=== PATIENT | female | born 1945 | race Caucasian/White ===

== ENCOUNTER 2018-09-05 07:19 | Day surgery (SDC) | payer OTHER ==
[~2018-09-05 07:19] MED LIST: CALCIUM500 M1 PO; MULTIVITAMINS1 EAC9 PO; OSTERA TABLET1 EACH PO
[2018-09-05] MEDS ORDERED: TYLENOL ARTHRI650 MG PO (09:14)
== END 2018-09-05 14:15 | disposition home or self-care (01) ==
LOC: CIR.AMB 07:19
DX: K62.4 Stenosis of anus and rectum (principal); K62.5 Hemorrhage of anus and rectum; K59.09 Other constipation

== ENCOUNTER 2019-12-07 11:03 | Day surgery (SDC) | payer OTHER ==
[~2019-12-07 11:03] MED LIST changes: +TYLENOL ARTHRI650 MG PO
== END 2019-12-07 14:50 | disposition home or self-care (01) ==
LOC: AMB-ENDOS 11:03
DX: K62.4 Stenosis of anus and rectum (principal); K55.1 Chronic vascular disorders of intestine

== ENCOUNTER 2022-04-26 10:57 | Emergency (ER) | payer OTHER ==
[~2022-04-26] VITALS: Ht 152.4 cm; Wt 47.2 kg
== END 2022-04-26 19:05 | disposition home or self-care (01) ==
LOC: ER 10:57
DX: R10.9 Unspecified abdominal pain (principal); Z88.0 Allergy status to penicillin; Z88.2 Allergy status to sulfonamides; Z88.6 Allergy status to analgesic agent; Z85.9 Personal history of malignant neoplasm, unspecified

== ENCOUNTER 2022-05-16 11:00 | Inpatient (IN) | payer OTHER ==
[~2022-05-16] VITALS: Ht 149.9 cm; Wt 46.7 kg
[2022-05-16] MEDS ORDERED: PANADOL EXTRA500 MG PO (14:43)
[2022-05-18] MEDS ORDERED: FAMOTIDINE20 MG (15:14)
[2022-05-18] MEDS ORDERED: DOCUSATE SODIU100 MG (15:14)
== END 2022-05-22 13:59 | disposition home or self-care (01) | DRG 330 ==
LOC: O/R 05-18 07:49 → SURH 05-18 11:00
PROVIDERS: ADMIT Surgery; ATTEND Surgery
PROC: 0D1N4Z4 Bypass Sigmoid Colon to Cutaneous, Percutaneous Endoscopic Approach (ICD-10-PCS; principal; 2022-05-18 13:00)
DX: K62.4 Stenosis of anus and rectum (principal); K55.1 Chronic vascular disorders of intestine; K62.7 Radiation proctitis; Z20.822 Contact with and (suspected) exposure to COVID-19

== ENCOUNTER 2023-06-12 15:27 | Inpatient (IN) | payer OTHER ==
[~2023-06-12] VITALS: Ht 149.9 cm; Wt 47.6 kg
[~2023-06-12 15:27] MED LIST changes: +DOCUSATE SODIU100 MG; +FAMOTIDINE20 MG; +PANADOL EXTRA500 MG PO
[2023-06-13] MEDS ORDERED: CIPRO250 MG/5 M PO (12:12)
[2023-06-13] MEDS ORDERED: BETHANECHOL CHLO5 MG PO (12:13)
[2023-06-19] MEDS ORDERED: FERROUS SULFAT325 MG (08:43)
[2023-06-19] MEDS ORDERED: FOLIC ACID1 MG (08:43)
[2023-06-21] MEDS ORDERED: ACETAMINOPHEN500 M2 PO (14:05)
[2023-06-21] MEDS ORDERED: NEURONTIN300 MG PO (14:05)
== END 2023-06-21 19:09 | disposition home or self-care (01) | DRG 330 ==
LOC: ADM 06-13 09:45 → EDSTATUS 06-13 09:45 → O/R 06-18 05:50 → SURH 06-18 09:45
PROVIDERS: ADMIT Surgery; ATTEND Surgery
PROC: 07BB4ZZ Excision of Mesenteric Lymphatic, Percutaneous Endoscopic Approach (ICD-10-PCS; 2023-06-18)
PROC: 0DBU4ZZ Excision of Omentum, Percutaneous Endoscopic Approach (ICD-10-PCS; 2023-06-18)
PROC: 0DTF4ZZ Resection of Right Large Intestine, Percutaneous Endoscopic Approach (ICD-10-PCS; principal; 2023-06-18 13:30)
DX: C18.2 Malignant neoplasm of ascending colon (principal); K55.1 Chronic vascular disorders of intestine; K62.5 Hemorrhage of anus and rectum; K62.89 Other specified diseases of anus and rectum

== ENCOUNTER 2023-07-07 12:43 | Emergency (ER) | payer OTHER ==
[~2023-07-07] VITALS: Ht 167.6 cm; Wt 49.9 kg
[~2023-07-07 12:43] MED LIST changes: +ACETAMINOPHEN500 M2 PO; +BETHANECHOL CHLO5 MG PO; +CIPRO250 MG/5 M PO; +FERROUS SULFAT325 MG; +FOLIC ACID1 MG; +NEURONTIN300 MG PO
[2023-07-07] MEDS ORDERED: PANTOPRAZOLE SO40 MG PO (12:54)
[2023-07-07] MEDS ORDERED: GABAPENTIN600 MG PO (12:54)
== END 2023-07-07 18:28 | disposition home or self-care (01) ==
LOC: ER 12:43
PROVIDERS: Emergency Medicine
DX: K29.60 Other gastritis without bleeding (principal); Z93.3 Colostomy status; C18.2 Malignant neoplasm of ascending colon; R07.89 Other chest pain; Z88.6 Allergy status to analgesic agent; Z88.0 Allergy status to penicillin; Z88.2 Allergy status to sulfonamides
CPT/HCPCS: 36415; 71045; 93005; 93041; 96365; 99284; J3490

== ENCOUNTER 2024-06-10 14:50 | Emergency (ER) | payer OTHER ==
[~2024-06-10] VITALS: Ht 152.4 cm; Wt 45.4 kg
[~2024-06-10 14:50] MED LIST changes: +GABAPENTIN600 MG PO; +PANTOPRAZOLE SO40 MG PO
[2024-06-10] MEDS ORDERED: MEDI-MECLIZINE25 MG (15:19)
[2024-06-10] MEDS ORDERED: LEVSIN0.125 MG (15:19)
[2024-06-10] MEDS ORDERED: ELIQUIS5 MG (15:19)
[2024-06-10] MEDS ORDERED: RINGERS SOLUTION,LACTATED 1,000 ML IV STA (19:51)
[2024-06-10] MEDS ORDERED: METOCLOPRAMIDE HCL 5 MG/ML VIAL IM STA (19:52)
[2024-06-10] MEDS ORDERED: BARIUM SULFATE 450 ML ORAL.SUSP PO ONE (20:07)
[2024-06-10 20:41] LABS: HEMATOCRIT 33.3 % (36.0-45.00); HEMOGLOBIN 11.1 g/dL (12.0-15.00); MEAN CELL VOLUME 80.9 fL (80.00-100.00); MEAN CORPUSCULAR HEMOGLOBIN 26.9 pg (27.00-32.0); MEAN CORPUSCULAR HGB CONC 33.2 g/dl (32.0-36.0); PLATELET COUNT 243 K/uL (150-450); RED BLOOD COUNT 4.12 M/uL (4.00-6.00); RED CELL DISTRIBUTION WIDTH 18.2 % (11.5-14.5)
[2024-06-10 21:02] LABS: PH,URINE 6.5 (5.0-8.0); URINE APPEARANCE Turbid; URINE BILIRRUBIN Negative (NEGATIVE); URINE BLOOD Moderate; URINE COLOR Yellow; URINE GLUCOSE Negative (NEGATIVE); URINE LEUKOCYTE Large; URINE NITRATE Negative; URINE PROTEIN 30 (NEGATIVE); URINE UROBILINOGEN 0.2 E.U./dl
[2024-06-10 21:06] LABS: URINE RBC 231.6 uL (0.0-20.8); URINE WBC 5481.6 uL (0.0-23.2)
[2024-06-10 21:26] LABS: URINE EPITHELIAL CELLS 1.2 uL (0.0-38.8)
[2024-06-10 21:27] LABS: URINE BACTERIA > 9821.5 uL (0.0-1933)
[2024-06-10 21:46] LABS: ALBUMIN 2.5 gm/dL (3.4-5.0); BILIRUBIN TOTAL 0.51 mg/dL (0.3-1.2); CALCIUM 8.8 mg/dL (8.5-10.1); CREATININE SERUM 0.64 mg/dL (0.55-1.02); GFR 89.98; GLOBULINA 4.1 G/DL (2.4-3.5); POTASSIUM 4.05 mEq/L (3.5-5.1); TOTAL PROTEIN 6.6 gm/dL (6.4-8.2)
[2024-06-10 21:49] LABS: INR 1.08; PARTIAL THROMBOPLASTIN TIME 26.2 SECONDS (22.0-34.0); PROTHROMBIN TIME 11.3 SECONDS (9.0-11.5)
[2024-06-11] MEDS ORDERED: CIPROFLOXACIN IN 5 % DEXTROSE 400 MG/200 ML PIGGYBAG IV STA (02:31)
[2024-06-11] MEDS ORDERED: CIPROFLOXACIN IN 5 % DEXTROSE 400 MG/200 ML PIGGYBAG IV ONE (02:50)
[2024-06-11] MEDS ORDERED: CIPRO500 MG PO (03:15)
== END 2024-06-11 04:17 ==
LOC: ER 14:51
DX: Z93.3 Colostomy status (principal); N39.0 Urinary tract infection, site not specified; R10.9 Unspecified abdominal pain; Z88.0 Allergy status to penicillin; Z88.2 Allergy status to sulfonamides; Z88.6 Allergy status to analgesic agent
CPT/HCPCS: 36415; 51702; 74177; 96365; 96372; 99284; J0744; J2765; Q9965

== ENCOUNTER 2025-06-01 09:00 | Inpatient (IN) | payer OTHER ==
[~2025-06-01] VITALS: Ht 162.6 cm; Wt 46.3 kg
[~2025-06-01 09:00] MED LIST changes: +CIPRO500 MG PO; +ELIQUIS5 MG; +LEVSIN0.125 MG; +MEDI-MECLIZINE25 MG
[2025-06-01] MEDS ORDERED: FUROSEMIDE20 MG (09:34)
--- NOTE | 2025-06-01 09:39 | NUR ---
PTE ALERTA Y ORIENTADA X3 REFIERE DOLOR ABDOMINAL Y UN EPISODIO DE VOMITO. PTE REFIERE SER PTE DE DR. JOANA BARRIENTOS. SE LEDA S/V Y SE UBICA.
[2025-06-01] MEDS ORDERED: METRONIDAZOLE/SODIUM CHLORIDE 500 MG/100 ML PIGGYBACK IV ONE (10:00)
[2025-06-01] MEDS ORDERED: CIPROFLOXACIN IN 5 % DEXTROSE 400 MG/200 ML PIGGYBAG IV ONE (10:00)
[2025-06-01] MEDS ORDERED: 0.9 % SODIUM CHLORIDE 1,000 ML IV SCH (10:00)
--- NOTE | 2025-06-01 11:05 | NUR ---
PTE EVALUADO POR DR. CAR, PRESENTANDO MOLESTIA ABDOMINAL, SE REALIZA ISAAC DE MUESTRAS DE [place] CARLOS BAJO MEDIDAS ASEPTICAS Y SE ADMINISTRAN MEDICAMENTOS POR ORDEN MEDICA Y SE OFRECE ORIENTACION SOBRE PROCEDIMIENTOS REALIZADOS Y PROCESO DE RE-EVALUACION MEDICA. CLIENTE ALERTA Y ORIENTADO AL MOMENTO DE LA INTERVENCION.
[2025-06-01 11:09] LABS: BASO % 0.2 % (0.1-1.2); EOS # 0.00 (0.04-0.54); EOS % 0.0 % (0.7-7.0); LYMPH # 1.05 (1.18-3.74); LYMPH % 13.1 % (19.3-53.1); MEAN PLATELET VOLUME 11.90 fl (9.4-12.4); MONO # 0.45 (0.24-0.82); MONO % 5.6 % (4.7-12.5); NEUT # 6.48 (1.56-6.13); NEUT % 80.9 % (34.0-71.1); RED CELL DISTRIBUTION WIDTH 15.5 % (11.6-14.4)
[2025-06-01 11:29] LABS: BUN CREA RATIO 22.0 (7.0-25.0); CREATININE SERUM 0.67 mg/dL (0.55-1.02); GFR 85.12; GLUCOSE FASTING 113.0 mg/dL (65-100); OSMOLALITY SERUM 288.0 MOSM/KG (275-295)
[2025-06-01 13:39] LABS: URINE APPEARANCE Clear; URINE BILIRRUBIN Negative (NEGATIVE); URINE BLOOD Large; URINE COLOR Yellow; URINE GLUCOSE Negative (NEGATIVE); URINE KETONE 15 (NEGATIVE); URINE LEUKOCYTE Trace; URINE NITRATE Negative; URINE PROTEIN Negative (NEGATIVE); URINE UROBILINOGEN 0.2 E.U./dl
[2025-06-01 13:43] LABS: URINE BACTERIA 8.3 uL (0.0-1933); URINE EPITHELIAL CELLS 7.8 uL (0.0-38.8); URINE RBC 240.9 uL (0.0-20.8); URINE WBC 71.5 uL (0.0-23.2)
[2025-06-01 13:46] LABS: URINE CAST 0.14 uL (0.0-1.40)
[2025-06-01] MEDS ORDERED: FAMOTIDINE/PF 20 MG in 0.9 % SODIUM CHLORIDE 8 ML IV PUSH SCH (19:59)
[2025-06-01] MEDS ORDERED: ACETAMINOPHEN 500 MG GEL..CAP PO PRN (20:00)
[2025-06-01] MEDS ORDERED: DEXTROSE 5 % AND 0.9 % NACL 1,000 ML IV SCH (20:00)
[2025-06-01] MEDS ORDERED: ONDANSETRON HCL 4 MG in 0.9 % SODIUM CHLORIDE 50 ML IV PRN (20:00)
[2025-06-01] MEDS ORDERED: POTASSIUM CHLORIDE 20MEQ/100ML H2O PB IV ONE (20:15)
[2025-06-01] MEDS ORDERED: CIPROFLOXACIN IN 5 % DEXTROSE 200 ML IV SCH (21:00)
[2025-06-01 22:34] LABS: INR 1.1
[2025-06-01 23:38] VITALS: BP 137/76; O2SAT 100
[2025-06-02 08:24] VITALS: BP 121/71; O2SAT 100
[2025-06-02] MEDS ORDERED: POTASSIUM CHLORIDE 20MEQ/100ML H2O PB IV ONE (13:15)
[2025-06-02 16:07] VITALS: BP 123/69; O2SAT 100
[2025-06-02 18:36] VITALS: BP 120/73; O2SAT 96
[2025-06-03 03:01] VITALS: BP 110/66; O2SAT 96
[2025-06-03 08:49] VITALS: BP 124/64
[2025-06-03 13:15] LABS: ALT/SGPT 19.0 U/L (12-78); AST/SGOT 21.0 U/L (15-37); BILIRUBIN TOTAL 0.51 mg/dL (0.3-1.2); BUN CREA RATIO 9.0 (7.0-25.0); CREATININE SERUM 0.67 mg/dL (0.55-1.02); GFR 85.12; GLOBULINA 2.9 G/DL (2.4-3.5); GLUCOSE FASTING 115.0 mg/dL (65-100); OSMOLALITY SERUM 295.0 MOSM/KG (275-295)
[2025-06-03] MEDS ORDERED: POTASSIUM CHLORIDE 10 MEQ CAPSULE PO NR (15:15)
[2025-06-03 16:52] VITALS: BP 124/64; O2SAT 98
[2025-06-04 01:40] VITALS: BP 131/67; O2SAT 97
[2025-06-04 06:30] LABS: BASO % 0.7 % (0.1-1.2); EOS # 0.17 (0.04-0.54); EOS % 4.2 % (0.7-7.0); LYMPH # 0.81 (1.18-3.74); LYMPH % 19.9 % (19.3-53.1); MEAN PLATELET VOLUME 12.40 fl (9.4-12.4); MONO # 0.54 (0.24-0.82); NEUT # 2.51 (1.56-6.13); NEUT % 61.7 % (34.0-71.1); RED CELL DISTRIBUTION WIDTH 15.5 % (11.6-14.4)
[2025-06-04 06:40] LABS: MONO % 13.3 % (4.7-12.5)
[2025-06-04 09:20] VITALS: BP 117/73
[2025-06-04 16:00] VITALS: BP 139/69
[2025-06-05 01:06] VITALS: BP 132/60; O2SAT 98
[2025-06-05 10:10] VITALS: BP 133/63; O2SAT 96
[2025-06-05 16:54] LABS: BASO % 0.4 % (0.1-1.2); EOS # 0.07 (0.04-0.54); EOS % 1.5 % (0.7-7.0); LYMPH # 0.85 (1.18-3.74); LYMPH % 18.2 % (19.3-53.1); MEAN PLATELET VOLUME 12.30 fl (9.4-12.4); MONO # 0.52 (0.24-0.82); MONO % 11.1 % (4.7-12.5); NEUT # 3.21 (1.56-6.13); NEUT % 68.8 % (34.0-71.1); RED CELL DISTRIBUTION WIDTH 15.4 % (11.6-14.4)
[2025-06-05 17:37] LABS: ALT/SGPT 22.0 U/L (12-78); AST/SGOT 19.0 U/L (15-37); BILIRUBIN TOTAL 0.47 mg/dL (0.3-1.2); BUN CREA RATIO 11.0 (7.0-25.0); CREATININE SERUM 0.56 mg/dL (0.55-1.02); GFR 104.7; GLOBULINA 2.2 G/DL (2.4-3.5); GLUCOSE FASTING 118.0 mg/dL (65-100); OSMOLALITY SERUM 291.0 MOSM/KG (275-295)
[2025-06-05 18:30] VITALS: BP 136/67; O2SAT 98
[2025-06-05] MEDS ORDERED: POTASSIUM CHLORIDE IN WATER 40 MEQ/100 ML PIGGYBAG IV SCH (21:45)
[2025-06-05] MEDS ORDERED: POTASSIUM CHLORIDE IN WATER 40 MEQ/100 ML PIGGYBAG IV ONE (22:01)
[2025-06-06 01:56] VITALS: BP 126/73; O2SAT 99
[2025-06-06 10:32] VITALS: BP 114/59; O2SAT 98
[2025-06-06] MEDS ORDERED: POTASSIUM CHLORIDE IN WATER 40 MEQ/100 ML PIGGYBAG IV NR (11:05)
[2025-06-06 11:09] LABS: BUN CREA RATIO 9.0 (7.0-25.0); CREATININE SERUM 0.67 mg/dL (0.55-1.02); GFR 85.12; GLUCOSE FASTING 148.0 mg/dL (65-100); OSMOLALITY SERUM 291.0 MOSM/KG (275-295)
[2025-06-06] MEDS ORDERED: LACTOBACILLUS ACIDOPHILUS 1 CAP CAP PO SCH (17:00)
[2025-06-06 18:03] VITALS: BP 112/65; O2SAT 98
[2025-06-06] MEDS ORDERED: POTASSIUM CHLORIDE IN WATER 40 MEQ/100 ML PIGGYBAG IV ONE (21:40)
[2025-06-07 01:41] VITALS: BP 127/72; O2SAT 98
[2025-06-07 10:26] VITALS: BP 100/62; O2SAT 99
[2025-06-07 19:08] VITALS: BP 105/64
[2025-06-08 03:27] VITALS: BP 109/62; O2SAT 97
[2025-06-08 09:11] VITALS: BP 107/64; O2SAT 98
[2025-06-08 17:43] VITALS: BP 106/59
[2025-06-09 03:42] VITALS: BP 113/63; O2SAT 95
[2025-06-09 08:58] LABS: BUN CREA RATIO 20.0 (7.0-25.0); CREATININE SERUM 0.7 mg/dL (0.55-1.02); GFR 80.93; GLUCOSE FASTING 119.0 mg/dL (65-100); OSMOLALITY SERUM 288.0 MOSM/KG (275-295)
[2025-06-09 10:22] VITALS: BP 106/69; O2SAT 95
== END 2025-06-09 11:05 | disposition home or self-care (01) | DRG 389 ==
LOC: ER 09:00 → SEC-K 20:32 → MEDJ 06-02 15:19
PROVIDERS: Emergency Medicine; General Practice; Student in an Organized Health Care Education/Training Program; ADMIT Internal Medicine; ATTEND Internal Medicine
PROC: 0D9670Z Drainage of Stomach with Drainage Device, Via Natural or Artificial Opening (ICD-10-PCS; principal; 2025-06-01)
PROC: BW21YZZ Computerized Tomography (CT Scan) of Abdomen and Pelvis using Other Contrast (ICD-10-PCS; 2025-06-01)
PROC: 3E0336Z Introduction of Nutritional Substance into Peripheral Vein, Percutaneous Approach (ICD-10-PCS; 2025-06-02)
DX: K56.0 Paralytic ileus (principal); C18.9 Malignant neoplasm of colon, unspecified; E87.0 Hyperosmolality and hypernatremia; K52.89 Other specified noninfective gastroenteritis and colitis; E87.6 Hypokalemia; R60.0 Localized edema; Z93.3 Colostomy status; Z88.6 Allergy status to analgesic agent; Z88.0 Allergy status to penicillin; Z91.013 Allergy to seafood; Z88.2 Allergy status to sulfonamides; Z92.3 Personal history of irradiation